=== PATIENT | male | born 1960 | race Caucasian/White ===

== ENCOUNTER 2021-09-07 18:01 | Inpatient (IN) | payer OTHER, SELFPAY ==
[2021-09-07 18:20] VITALS: BP 178/88; PULSE 54; TEMP 36.9
[2021-09-07 18:25] VITALS: BMI 18.3
[2021-09-07] MEDS: traZODone HCL 50 MG TABLET PO (21:49)
[2021-09-07] MEDS: Tamsulosin HCL 0.4 MG CAPSULE PO (21:49)
--- NOTE | 2021-09-07 21:56 | HO.PSYADMNOT ---
HPI Date of Service: 09/07/21 Chief Complaint: depressive d/o, stimulant related d/o, cocaine Sources of Information: patient interviewed, chart reviewed and crisis/core team assessment reviewed HPI Subjective Notes: Spears Warning and Conditional Voluntary Healthcare Proxy: No Guardianship: No Medical Problems Affecting Mental Status: No Narrative: Mason is a 61 y.o. who carries a dx of crack cocaine disorder, MDD recurrent. Male who presented [place] [facility] 09[place]07[place] due to SI. Pt reported that on 09/06/21 he jumped out of a second story apartment window yesterday and overdosed on 25 tabs of gabapentin 300 mg. He relapsed on crack cocaine x 1 week, using daily. Pt has not been caring for his DM, says he is insulin dependent. He does not have any current psych providers or PCP as he has been non-adherent with appointments. Precipitating factors include that pt has limited supports, as many people in his family have . He had 2 brothers who have and his sister was recently diagnosed with cancer.? Per ED notes on 09/06/21: EKG showed NSR, QTC 451. Pt was complaining of pleuritic pain, Chest CT showed no acute abnormality, ruled out pneumothorax. Pt also complained of hitting the back of his head during his fall, no acute intracranial hemorrhage or mass effect, no acute fracture of the cervical spine.? I value the patient this evening and upon interview he reports he is depressed and says ?I don't care about living no more, everyone is family is gone,? his sister was just diagnosed with cancer. Says ?Im tired of living period.?? patient is somewhat future-oriented says he wants to ?get it together,? ?i dont wanna go home messed up no more,? and that crack cocaine is too expensive. Says he has been smoking too much, ?I lost my fucking mind.? Pt has been sleeping outside or in hallways, as his ?dont play that drug shit,? cant use drugs at home. He relapsed last Monday and hasn?t been at home or work since then. However, he called his HR dept yesterday morning, now trying to get FMLA. Says his sleep has been improving due to being in the hospital, he was not sleeping prior to admission due to homelessness. Pt reports he has been struggling with depression and relapse for a while, says ?before this episode I was gone from home for 2 weeks.? Has been non-adherent with prozac. Says he wants a medication to help ?stop cravings.? Continues to endorse passive SI but denies plan or intent and says he feels safe. Past Psychiatric History: -Hx of crisis evals for SI, crack cocaine abuse. Medical Evaluation Reviewed: Yes PMFSH Narrative: -Cluster migraines, says verapamil and rizatriptan PRN helps. Family History: -Substance use and mental health. Social History: -Pt resides with his x 12 yrs who does not allow him to use crack cocaine at home and will kick him out if he does. No children. Pt has limited supports, as many people in his family have . He had 2 brothers who have and his sister was recently diagnosed with cancer. -Legal: Per chart, pt recently arrested on drug related charges and has an upcoming court date. Hx of shoplifting. -Works for [employer] in [place]. Substance History: -Pt has hx of student success coach -Crack cocaine: onset age 42, last using daily x 1 week, uses $600 worth. Diagnostics Vital Signs (24Hr): BMI result Body Mass Index 18.3 Labs Results: 09/08/21 08:22 09/08/21 08:22 Meds/Allergies Allergies Allergies Allergy/AdvReac Type Severity Reaction Status Date / Time Penicillins AdvReac Intermediate Hives Verified 09/07/21 18:29 ibuprofen AdvReac Nausea and Verified 09/07/21 18:29 Vomiting Mental Status Exam Mental Status Exam Narrative: A&O. In hospital attire, thin, scab on head. Poor eye contact, inattentive. No Tics or Tremors. No abnormal involuntary movements. Guarded, agitated, but ultimately able to engage. Non-pressured speech, spontaneous with regular rate and rhythm, normal volume and prosody. No prolonged speech latency or dysarthria. Mood is ?depressed,? affect is dysphoric. Endorses passive SI. Denies SIB/HI upon inquiry. Denies A/VH or delusional thought content. Thoughts are perseverative. No known cognitive or memory impairment. Insight/ Judgment limited but adequate. Assessment & Plan Assessment & Plan (1) Cocaine use disorder: Status: Acute Code(s): F14.10 - Cocaine abuse, uncomplicated (2) MDD (major depressive disorder), recurrent episode, moderate: Status: Acute Code(s): F33.1 - Major depressive disorder, recurrent, moderate Plan Mason is a 61 y.o. who carries a dx of crack cocaine disorder, MDD recurrent. Male who presented [place] [facility] [place] 09[place]07[place] due to SI. Pt reported that on 09/06/21 he jumped out of a second story apartment window yesterday and overdosed on 25 tabs of gabapentin 300 mg. He relapsed on crack cocaine x 1 week, using daily. Pt has not been caring for his DM, says he is insulin dependent. He does not have any current psych providers or PCP as he has been non-adherent with appointments. Precipitating factors include that pt has limited supports, as many people in his family have . He had 2 brothers who have and his sister was recently diagnosed with cancer.? Plan: Will re-start prozac 10 mg QAM for sx of depression, anxiety, may continue to titrate up as tolerated. Pt does not have OP services, may benefit from talking to recovery team. Patient educated on: medication risk/benefits and therapeutic strategies Reason for continued inpatient stay Substantial Risk for: harm to self, rapid decompensation and med/psych decompensation
--- NOTE | 2021-09-08 00:15 | PC.ADMIT ---
A pt aged 61 years was admitted to [facility] at 1815 as a CV following referral from [facility] and [facility] ED. Pt is has previous psychiatric admissions here and elsewhere as well as admissions for substances. Pt was assessed by [facility] at pt's home in ambulance following pt contacting 911 for help. Pt reported the day before on 09/05/21 he had taken 25 gabapentin capsules and threw himself out of a second floor window in an attempt to end his life. Pt reported he struck the back of his head on the ground. Mason stated to [facility] staff, I just want to , I'll do whatever it takes' I'm not good for nothing anymore, I'm nothing. Pt reported to this promotion writer that he had been using crack cocaine daily for the past several months. Pt reported to [facility] staff that he has not been monitoring his diabetes or taking his insulin for several days. Pt reports significant weight loss due to cocaine use. Pt reports poor sleep with frequent awakening and at times insomnia. Pt reports anxiety and depression rated at 8-10/10 and says sees VH of his mother at times. Pt reports current SI, but says can be safe on the unit; pt says can seek out staff for help if needed. TELLEZ was positive for cocaine only. Pt reports drinking Etoh less than monthly at 1-2 drinks. Pt has a supportive significant other with whom he has a long relationship and has stable housing. 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 Pt does not currently have a therapist or psychiatrist/ psych med prescriber. Pt stated he would like care for addiction for 30-60 days. Pt was calm and cooperative during assessment but was increasingly sleepy. Pt is a smoker of about 10 cigarettes daily and would like nicotine patch 14mg. Pt has poor dentition and would like to try the nicorette lozenge PRN. Medical issues include: diabetes, HTN and asthma. [id number] done, admission orders obtained and treatment plan initiated. Pt is resting in his room on 15 minute safety checks at this time. Pt still needs to complete the Safety Tool as he was falling asleep.
--- NOTE | 2021-09-08 08:00 | ECG_ITS ---
Test Reason : CK RHYTHM QT Blood Pressure : / mmHG Vent. Rate : 056 BPM Atrial Rate : 056 BPM P-R Int : 160 ms QRS Dur : 102 ms QT Int : 442 ms P-R-T Axes : 057 064 054 degrees QTc Int : 426 ms Sinus bradycardia with sinus arrhythmia Minimal voltage criteria for LVH, may be normal variant ( Sokolow-Britton ) Borderline ECG No previous ECGs available Referred By: Jorge Salinas Electronically Signed By:LAN KNOX MD
[2021-09-08] MEDS: VerapamiL HCL SR 240 MG TABLET.ER PO (08:23)
[2021-09-08] MEDS: Loratadine 10 MG TABLET PO (08:24)
[2021-09-08] MEDS: Atorvastatin Calcium 20 MG TABLET PO (08:24)
[2021-09-08] MEDS: FLUoxetine HCl Oral Solution 20 MG/5 ML SOLUTION 10 MG PO (08:24)
[2021-09-08] MEDS: metFORMIN HCl 500 MG TABLET PO (08:24)
[2021-09-08] MEDS: Aspirin 81 MG TAB.CHEW PO (08:24)
[2021-09-08] MEDS: Losartan Potassium 50 MG TABLET 100 MG PO (08:24)
[2021-09-08 08:27] VITALS: BP 157/97; PULSE 80; RESP 18; TEMP 36.6; O2SAT 100
[2021-09-08] MEDS: Nicotine 21 MG PATCH.TD24 TRANSDERMA (08:37)
[2021-09-08 08:56] LABS: MANUAL DIFF FLAG NO
[2021-09-08 09:03] LABS: Basophils Percent Auto 0.5 % (0-2); Eosinophils Absolute Auto 0.1 X10*3/uL (0.0-0.4); Eosinophils Percent Auto 2.8 % (0-4); Hemoglobin 11.9 g/dl (14.0-18.0); Imm Gran Abs Auto 0.01 X10*3/uL (0.00-0.03); Imm Gran Pct Auto 0.3 % (0.0-0.4); Lymphocytes Absolute Auto 1.2 X10*3/uL (1.2-4.9); Lymphocytes Percent Auto 30.4 % (20-40); Mean Corpuscular HGB Conc 32.2 g/dl (31.0-36.0); Mean Corpuscular Hemoglobin 26.2 pg (27.0-33.0); Mean Corpuscular Volume 81.3 fL (80.0-98.0); Mean Platelet Volume 10.1 fL (9.4-12.4); Monocytes Absolute Auto 0.3 X10*3/uL (0.1-1.2); Monocytes Percent Auto 8.1 % (2-11); Neutrophils Absolute Auto 2.3 x10*3/uL (2.0-8.3); Neutrophils Percent Auto 57.9 % (45-73); Platelet Count 247 X10*3/uL (160-400); Red Blood Count 4.55 X10*6/uL (4.60-5.80); Red Cell Distribution Width 14.4 % (11.0-16.0)
[2021-09-08 09:34] LABS: Alanine Aminotransferase 14 U/L (0-40); Albumin Level 4.1 g/dL (3.5-5.0); Alkaline Phosphatase 51 U/L (39-117); Anion Gap 12 (12-20); Aspartate Amino Transferase 16 U/L (5-37); Bilirubin Total 0.3 mg/dL (0.0-1.0); Blood Urea Nitrogen 16 mg/dL (9-16); Carbon Dioxide 27 mmol/L (22-29); Chloride 105 mmol/L (96-108); Cholesterol 135 mg/dL; Creatinine Clr Calc Pharmacy 72.3; Estimated Glomerular Filt Rate > 60; Glucose Fasting 109 mg/dL (60-99); HDL Cholesterol 46 mg/dL; LDL Cholesterol Calculated 78 mg/dl; Potassium 4.6 mmol/L (3.3-5.1); Sodium 139 mmol/L (135-145); Total Protein 6.6 g/dL (6.5-8.0); Triglycerides 59 mg/dL
[2021-09-08 09:43] LABS: Estimated Average Glucose 117 mg/dL; Hemoglobin A1c % 5.7 %
[2021-09-08 12:01] LABS: Glucose, Whole Blood 102 mg/dL (60-115)
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
--- NOTE | 2021-09-08 13:21 | HO.PSYCHPN ---
Subjective Subjective Date of Service: 09/08/21 Reason For Visit: depressive d/o, stimulant related d/o, cocaine Interim History: Reviewed admitting H and P; reviewed ED notes. Head and neck CT done 09/07/2019 to no acute disease; no intracranial processes no fracture of cervical spine [facility] Chopper reviewed history and patient said that he has been depressed for 6 or 7 months even while sober. He said the last 2 months he started to relapse and his depression is only gotten worse since then, significantly increasing the past 3 weeks as has his crack cocaine abuse. Patient said Prozac does not seem to help much. The reason hE jumped out the window was because his depression and frustration with himself and life reached a point where he got impulsive and just said fuck it and went out the window. Patient is currently ambivalent about being alive. On the 1 hand he said he wishes he had ; on the other hand he loves his and is with deep remorse and having caused her emotional pain and wants to continue to be alive and in relationship with her. Patient said that some of the precipitating factors are the fact that his brother who is his best friend a year and half ago; now his sister has cancer; however he complains of chronic depression anyway. He said that most of his family has not lived to 60, his mother at 41 from alcohol-related illness. Patient denies history of manic type episodes or behaviors outside of crack cocaine binges; denies AH. Denies history of trauma. Patient agrees to try Wellbutrin for depression. Past trial includes Remeron which made him dizzy Mental Status Exam Mental Status Exam Narrative: Pt is alert and oriented; behavior is cooperative and calm; patient is distraught; blanket wrapped around him; adequate hygiene; mood is described as depressed and affect congruent, downcast, tearful; minimal eye contact; Speech is softer volume; normal rate and prosody and not pressured; psychomotor retardation present; thought process is organized and goal directed; Thought content is on being ; otherwise pertinent to relevant topics and without any delusional content, paranoid ideations or grandiosity;continues to have SI wishing he had , but will not hurt self on unit; no HI. There is no evidence of perceptual disturbance; denies AH. Patients insight and judgment are impaired. Diagnostics Vital Signs (24Hr): Vital Signs - 24 hr 09/07/21 18:20 09/08/21 08:27 Temperature 98.5 F 97.8 F Pulse Rate 54 80 Respiratory Rate 18 Blood Pressure 178/88 H 157/97 H Pulse Oximetry 100 Oxygen Delivery Method Room Air BMI result Body Mass Index 18.3 Labs Results: 09/08/21 08:22 09/08/21 08:22 Labs: Laboratory Results - last 48 hr 09/08/21 09/08/21 09/08/21 08:22 08:22 08:22 WBC 4.0 L RBC 4.55 L Hgb 11.9 L Hct 37.0 L MCV 81.3 MCH 26.2 L MCHC 32.2 RDW 14.4 Plt Count 247 MPV 10.1 Immature Gran % (Auto) 0.3 Neut % (Auto) 57.9 Lymph % (Auto) 30.4 [facility] % (Auto) 8.1 Eos % (Auto) 2.8 Baso % (Auto) 0.5 Lymph # (Auto) 1.2 [facility] # (Auto) 0.3 Eos # (Auto) 0.1 Baso # (Auto) 0.0 Abs Immat Gran (auto) 0.01 Absolute Neuts (auto) 2.3 Absolute Nucleated RBC 0.000 Nucleated RBC % (auto) 0.0 Sodium 139 Potassium 4.6 Chloride 105 Carbon Dioxide 27 Anion Gap 12 BUN 16 Creatinine 0.94 Estim Creat Clear Calc 72.3 Estimated GFR > 60 POC Glucose Fasting Glucose 109 H Estimat Average Glucose 117 Hemoglobin A1c % 5.7 Calcium 9.0 Total Bilirubin 0.3 AST 16 ALT 14 Alkaline Phosphatase 51 Total Protein 6.6 Albumin 4.1 Triglycerides 59 Cholesterol 135 LDL Cholesterol, Calc 78 HDL Cholesterol 46 09/08/21 11:57 WBC RBC Hgb Hct MCV MCH MCHC RDW Plt Count MPV Immature Gran % (Auto) Neut % (Auto) Lymph % (Auto) [facility] % (Auto) Eos % (Auto) Baso % (Auto) Lymph # (Auto) [facility] # (Auto) Eos # (Auto) Baso # (Auto) Abs Immat Gran (auto) Absolute Neuts (auto) Absolute Nucleated RBC Nucleated RBC % (auto) Sodium Potassium Chloride Carbon Dioxide Anion Gap BUN Creatinine Estim Creat Clear Calc Estimated GFR POC Glucose 102 Fasting Glucose Estimat Average Glucose Hemoglobin A1c % Calcium Total Bilirubin AST ALT Alkaline Phosphatase Total Protein Albumin Triglycerides Cholesterol LDL Cholesterol, Calc HDL Cholesterol Medications Medications Current Medications Acetaminophen (Acetaminophen 325 Mg Tablet) 650 mg PO Q6H PRN PRN Reason: Headache/Pain Mild Scale (1-3) Al Hydroxide/Mg Hydroxide (Magnesium Hydrox/Alum Hydrox 30 Ml Oral.Susp) 30 ml PO Q6H PRN PRN Reason: Heartburn/Nausea Aspirin (Aspirin 81 Mg Tab.Chew) 81 mg PO DAILY [facility] Last Admin: 09/08/21 08:24 Dose: 81 mg Atorvastatin Calcium (Atorvastatin Calcium 20 Mg Tablet) 20 mg PO DAILY [facility] Last Admin: 09/08/21 08:24 Dose: 20 mg Bupropion HCl (Bupropion Hcl Xl 150 Mg Tab.Er.24h) 150 mg PO DAILY [facility] Hydroxyzine HCl (Hydroxyzine Hcl 25 Mg Tablet) 25 mg PO BEDTIME PRN PRN Reason: Anxiety Insulin Human Lispro (Insulin Lispro 100 Unit/Ml 3 Ml Vial) 0 unit SUBCUT QIDACHS [facility]; Protocol Last Admin: 09/08/21 12:15 Dose: Not Given Loratadine (Loratadine 10 Mg Tablet) 10 mg PO DAILY [facility] Last Admin: 09/08/21 08:24 Dose: 10 mg Losartan Potassium (Losartan Potassium 50 Mg Tablet) 100 mg PO DAILY [facility]; Protocol Last Admin: 09/08/21 08:24 Dose: 100 mg Magnesium Hydroxide (Milk Of Magnesia 30 Ml Oral.Susp) 30 ml PO DAILY PRN PRN Reason: Constipation Metformin HCl (Metformin Hcl 500 Mg Tablet) 500 mg PO DAILY [facility] Last Admin: 09/08/21 08:24 Dose: 500 mg Nicotine (Nicotine 21 Mg Patch.Td24) 21 mg TRANSDERMA DAILY [facility] Last Admin: 09/08/21 08:37 Dose: 21 mg Nicotine Polacrilex (Nicotine Polacrilex Lozenge 2 Mg Lozenge) 2 mg BUCCAL Q2H PRN PRN Reason: Nicotine Cravings Tamsulosin HCl (Tamsulosin Hcl 0.4 Mg Capsule) 0.4 mg PO BEDTIME [facility] Last Admin: 09/07/21 21:49 Dose: 0.4 mg Trazodone HCl (Trazodone Hcl 50 Mg Tablet) 50 mg PO BEDTIME PRN PRN Reason: Insomnia Last Admin: 09/07/21 21:49 Dose: 50 mg Verapamil HCl (Verapamil Hcl Sr 240 Mg Tablet.Er) 240 mg PO DAILY [facility]; Protocol Last Admin: 09/08/21 08:23 Dose: 240 mg Allergies Allergies Allergy/AdvReac Type Severity Reaction Status Date / Time Penicillins AdvReac Intermediate Hives Verified 09/07/21 18:29 ibuprofen AdvReac Nausea and Verified 09/07/21 18:29 Vomiting Assessment & Plan Assessment & Plan (1) MDD (major depressive disorder), recurrent episode, moderate: Status: Acute Code(s): F33.1 - Major depressive disorder, recurrent, moderate (2) Cocaine use disorder: Status: Acute Code(s): F14.10 - Cocaine abuse, uncomplicated Plan Mason is a 61 y.o. who carries a dx of crack cocaine disorder, MDD recurrent. Male who presented to [facility] ED on 09/07/21 due to SI. Pt reported that on 09/06/21 he jumped out of a second story apartment window yesterday and overdosed on 25 tabs of gabapentin 300 mg. He relapsed on crack cocaine 2 months ago, but heavily increased about 3 weeks ago, using daily. Pt has not been caring for his DM, says he is insulin dependent. He does not have any current psych providers or PCP as he has been non-adherent with appointments. Precipitating factors include that pt has limited supports, as many people in his family have including his brother who was his best friend; no one in his family has lived past 60 and his sister was recently diagnosed with cancer.? Patient seems to have chronic poorly treated depression which is clearly worsened by substance abuse. Patient is also dealing with several significant losses in his life. However he is fortunate to have a loving supportive which is 1 of his large is protective factors currently his motivation for pursuing recovery. Patient is currently employed -patient agrees to start Wellbutrin; will discontinue Prozac as patient says not helpful -patient wants substance abuse program Plan: CV Q 15 minute checks Discontinue Prozac START Wellbutrin XL 150 mg daily for depression Continue Aspirin 81 mg PO DAILY [facility] Continue Atorvastatin Calcium 20 mg PO DAILY [facility] added Hydroxyzine HCl25 mg PO BEDTIME PRN Continue Insulin Human Lispro (Insulin Lispro 100 Unit/Ml 3 Ml Vial) 0 unit SUBCUT QIDACHS [facility]; Protocol Continue Loratadine 10 mg PO DAILY [facility] Continue Losartan [id number] mg PO DAILY [facility]; Protocol Continue Metformin HCl 500 mg PO DAILY [facility] Continue Tamsulosin HCl 0.4 mg PO BEDTIME [facility] added Trazodone HCl 50 mg PO BEDTIME PRN Continue Verapamil HCl (Verapamil Hcl Sr 240 Mg Tablet.Er) I spent minutes with the patient and/or on the patient floor today, greater than?50% of which was spent counseling/coordinating care. Patient educated on: diagnosis, medication risk/benefits, substance abuse and therapeutic strategies Informed Consent: understands Reason for contiued inpatient stay Substantial Risk for: harm to self
[2021-09-08] MEDS: Multivitamin TABLET 1 TAB PO (13:49)
[2021-09-08] MEDS: Folic Acid 1 MG TABLET PO (13:49)
[2021-09-08] MEDS: Thiamine HCL 100 MG TABLET PO (13:49)
[2021-09-08] MEDS: Acetaminophen 325 MG TABLET 650 MG PO ×2 (16:30→22:33)
[2021-09-08 16:53] LABS: Glucose, Whole Blood 75 mg/dL (60-115)
[2021-09-08 17:25] VITALS: BP 167/99; PULSE 83; RESP 16; TEMP 36.3; O2SAT 99
[2021-09-08 19:37] LABS: Glucose, Whole Blood 98 mg/dL (60-115)
[2021-09-08] MEDS: Tamsulosin HCL 0.4 MG CAPSULE PO (19:47)
[2021-09-08] MEDS: SUMAtriptan succinate 25 MG TABLET PO (22:56)
[2021-09-09 06:26] LABS: Glucose, Whole Blood 100 mg/dL (60-115)
[2021-09-09 06:43] VITALS: BP 152/80; PULSE 79; RESP 17; TEMP 36.2; O2SAT 100
[2021-09-09] MEDS: Thiamine HCL 100 MG TABLET PO (07:56)
[2021-09-09] MEDS: buPROPion HCl XL 150 MG TAB.ER.24H PO (07:56)
[2021-09-09] MEDS: VerapamiL HCL SR 240 MG TABLET.ER PO (07:56)
[2021-09-09] MEDS: Atorvastatin Calcium 20 MG TABLET PO (07:56)
[2021-09-09] MEDS: Losartan Potassium 50 MG TABLET 100 MG PO (07:56)
[2021-09-09] MEDS: metFORMIN HCl 500 MG TABLET PO (07:56)
[2021-09-09] MEDS: Multivitamin TABLET 1 TAB PO (07:56)
[2021-09-09] MEDS: Folic Acid 1 MG TABLET PO (07:56)
[2021-09-09] MEDS: Nicotine 21 MG PATCH.TD24 TRANSDERMA (07:57)
[2021-09-09] MEDS: Aspirin 81 MG TAB.CHEW PO (07:59)
[2021-09-09] MEDS: Loratadine 10 MG TABLET PO (08:01)
[2021-09-09 08:02] VITALS: BP 137/94; PULSE 64
[2021-09-09 08:47] VITALS: BMI 20.7
[2021-09-09 11:27] LABS: Glucose, Whole Blood 90 mg/dL (60-115)
[2021-09-09 15:54] LABS: Glucose, Whole Blood 90 mg/dL (60-115)
--- NOTE | 2021-09-09 17:29 | HO.PSYCHPN ---
Subjective Subjective Date of Service: 09/09/21 Reason For Visit: depressive d/o, stimulant related d/o, cocaine Interim History: Clarification, patient is NOT insulin-dependent. He reports that he has never been prescribed insulin and has never taken it. He said that he might have missed spoken on admission and what he meant to say was that he had not been taking his metformin for some time during relapse. Patient reports that his mood is a little better today and he is tolerating the medication. He spoke to his which was a good conversation. He denies being suicidal and has some renewed Hope for overcoming his addiction and depression. Patient says he needs to go to a program very much in order to work on his sobriety, very sure that he will relapse if discharged home. Patient would also like to go to a CSS that is out of [facility] since he says he knows most of the attic sin dealers in this area which she finds triggering. Otherwise patient says that he is eating and sleeping well. Mental Status Exam Mental Status Exam Narrative: Pt is alert and oriented; behavior is cooperative and calm; in hospital attire; adequate hygiene; mood is described as depressed...but a little better and affect congruent, not as downcast; improved eye contact; Speech is normal volume; normal rate and prosody and not pressured; some psychomotor retardation present; thought process is organized and goal directed; Thought content is on trying to be hopeful; otherwise pertinent to relevant topics and without any delusional content, paranoid ideations or grandiosity; no SI; no HI; There is no evidence of perceptual disturbance; denies AH. Patients insight and judgment are impaired but improved. Diagnostics Vital Signs (24Hr): Vital Signs - 24 hr 09/09/21 06:43 09/09/21 08:02 Temperature 97.2 F Pulse Rate 79 64 Respiratory Rate 17 Blood Pressure 152/80 H 137/94 H Pulse Oximetry 100 Oxygen Delivery Method Room Air BMI result Body Mass Index 20.7 Labs Results: 09/08/21 08:22 09/08/21 08:22 Labs: Laboratory Results - last 48 hr 09/08/21 09/08/21 09/08/21 08:22 08:22 08:22 WBC 4.0 L RBC 4.55 L Hgb 11.9 L Hct 37.0 L MCV 81.3 MCH 26.2 L MCHC 32.2 RDW 14.4 Plt Count 247 MPV 10.1 Immature Gran % (Auto) 0.3 Neut % (Auto) 57.9 Lymph % (Auto) 30.4 [facility] % (Auto) 8.1 Eos % (Auto) 2.8 Baso % (Auto) 0.5 Lymph # (Auto) 1.2 [facility] # (Auto) 0.3 Eos # (Auto) 0.1 Baso # (Auto) 0.0 Abs Immat Gran (auto) 0.01 Absolute Neuts (auto) 2.3 Absolute Nucleated RBC 0.000 Nucleated RBC % (auto) 0.0 Sodium 139 Potassium 4.6 Chloride 105 Carbon Dioxide 27 Anion Gap 12 BUN 16 Creatinine 0.94 Estim Creat Clear Calc 72.3 Estimated GFR > 60 POC Glucose Fasting Glucose 109 H Estimat Average Glucose 117 Hemoglobin A1c % 5.7 Calcium 9.0 Total Bilirubin 0.3 AST 16 ALT 14 Alkaline Phosphatase 51 Total Protein 6.6 Albumin 4.1 Triglycerides 59 Cholesterol 135 LDL Cholesterol, Calc 78 HDL Cholesterol 46 09/08/21 09/08/21 09/08/21 11:57 16:48 19:31 WBC RBC Hgb Hct MCV MCH MCHC RDW Plt Count MPV Immature Gran % (Auto) Neut % (Auto) Lymph % (Auto) [facility] % (Auto) Eos % (Auto) Baso % (Auto) Lymph # (Auto) [facility] # (Auto) Eos # (Auto) Baso # (Auto) Abs Immat Gran (auto) Absolute Neuts (auto) Absolute Nucleated RBC Nucleated RBC % (auto) Sodium Potassium Chloride Carbon Dioxide Anion Gap BUN Creatinine Estim Creat Clear Calc Estimated GFR POC Glucose 102 75 98 Fasting Glucose Estimat Average Glucose Hemoglobin A1c % Calcium Total Bilirubin AST ALT Alkaline Phosphatase Total Protein Albumin Triglycerides Cholesterol LDL Cholesterol, Calc HDL Cholesterol 09/09/21 09/09/21 09/09/21 06:23 11:23 15:49 WBC RBC Hgb Hct MCV MCH MCHC RDW Plt Count MPV Immature Gran % (Auto) Neut % (Auto) Lymph % (Auto) [facility] % (Auto) Eos % (Auto) Baso % (Auto) Lymph # (Auto) [facility] # (Auto) Eos # (Auto) Baso # (Auto) Abs Immat Gran (auto) Absolute Neuts (auto) Absolute Nucleated RBC Nucleated RBC % (auto) Sodium Potassium Chloride Carbon Dioxide Anion Gap BUN Creatinine Estim Creat Clear Calc Estimated GFR POC Glucose 100 90 90 Fasting Glucose Estimat Average Glucose Hemoglobin A1c % Calcium Total Bilirubin AST ALT Alkaline Phosphatase Total Protein Albumin Triglycerides Cholesterol LDL Cholesterol, Calc HDL Cholesterol Medications Medications Current Medications Acetaminophen (Acetaminophen 325 Mg Tablet) 650 mg PO Q6H PRN PRN Reason: Headache/Pain Mild Scale (1-3) Last Admin: 09/08/21 22:33 Dose: 650 mg Al Hydroxide/Mg Hydroxide (Magnesium Hydrox/Alum Hydrox 30 Ml Oral.Susp) 30 ml PO Q6H PRN PRN Reason: Heartburn/Nausea Aspirin (Aspirin 81 Mg Tab.Chew) 81 mg PO DAILY [facility] Last Admin: 09/09/21 07:59 Dose: 81 mg Atorvastatin Calcium (Atorvastatin Calcium 20 Mg Tablet) 20 mg PO DAILY [facility] Last Admin: 09/09/21 07:56 Dose: 20 mg Bupropion HCl (Bupropion Hcl Xl 150 Mg Tab.Er.24h) 150 mg PO DAILY [facility] Last Admin: 09/09/21 07:56 Dose: 150 mg Folic Acid (Folic Acid 1 Mg Tablet) 1 mg PO DAILY [facility] Last Admin: 09/09/21 07:56 Dose: 1 mg Hydroxyzine HCl (Hydroxyzine Hcl 25 Mg Tablet) 25 mg PO BEDTIME PRN PRN Reason: Anxiety Insulin Human Lispro (Insulin Lispro 100 Unit/Ml 3 Ml Vial) 0 unit SUBCUT QIDACHS [facility]; Protocol Last Admin: 09/09/21 16:53 Dose: Not Given Loratadine (Loratadine 10 Mg Tablet) 10 mg PO DAILY [facility] Last Admin: 09/09/21 08:01 Dose: 10 mg Losartan Potassium (Losartan Potassium 50 Mg Tablet) 100 mg PO DAILY [facility]; Protocol Last Admin: 09/09/21 07:56 Dose: 100 mg Magnesium Hydroxide (Milk Of Magnesia 30 Ml Oral.Susp) 30 ml PO DAILY PRN PRN Reason: Constipation Metformin HCl (Metformin Hcl 500 Mg Tablet) 500 mg PO DAILY [facility] Last Admin: 09/09/21 07:56 Dose: 500 mg Multivitamins/Vitamin C (Multivitamin Tablet) 1 tab PO DAILY [facility] Last Admin: 09/09/21 07:56 Dose: 1 tab Nicotine (Nicotine 21 Mg Patch.Td24) 21 mg TRANSDERMA DAILY [facility] Last Admin: 09/09/21 07:57 Dose: 21 mg Nicotine Polacrilex (Nicotine Polacrilex Lozenge 2 Mg Lozenge) 2 mg BUCCAL Q2H PRN PRN Reason: Nicotine Cravings Sumatriptan Succinate (Sumatriptan Succinate 25 Mg Tablet) 25 mg PO DAILY PRN PRN Reason: cluster headache Last Admin: 09/08/21 22:56 Dose: 25 mg Tamsulosin HCl (Tamsulosin Hcl 0.4 Mg Capsule) 0.4 mg PO BEDTIME [facility] Last Admin: 09/08/21 19:47 Dose: 0.4 mg Thiamine HCl (Thiamine Hcl 100 Mg Tablet) 100 mg PO DAILY [facility] Last Admin: 09/09/21 07:56 Dose: 100 mg Trazodone HCl (Trazodone Hcl 50 Mg Tablet) 50 mg PO BEDTIME PRN PRN Reason: Insomnia Last Admin: 09/07/21 21:49 Dose: 50 mg Verapamil HCl (Verapamil Hcl Sr 240 Mg Tablet.Er) 240 mg PO DAILY [facility]; Protocol Last Admin: 09/09/21 07:56 Dose: 240 mg Allergies Allergies Allergy/AdvReac Type Severity Reaction Status Date / Time Penicillins AdvReac Intermediate Hives Verified 09/07/21 18:29 ibuprofen AdvReac Nausea and Verified 09/07/21 18:29 Vomiting Assessment & Plan Assessment & Plan (1) MDD (major depressive disorder), recurrent episode, moderate: Status: Acute Code(s): F33.1 - Major depressive disorder, recurrent, moderate (2) Cocaine use disorder: Status: Acute Code(s): F14.10 - Cocaine abuse, uncomplicated Plan Mason is a 61 y.o. who carries a dx of crack cocaine disorder, MDD recurrent. Male who presented to [facility] ED on 09/07/21 due to SI. Pt reported that on 09/06/21 he jumped out of a second story apartment window yesterday and overdosed on 25 tabs of gabapentin 300 mg. He relapsed on crack cocaine 2 months ago, but heavily increased about 3 weeks ago, using daily. Pt has not been caring for his DM, says he is insulin dependent (later recounts this and says he has never been on insulin). He does not have any current psych providers or PCP as he has been non-adherent with appointments. Precipitating factors include that pt has limited supports, as many people in his family have including his brother who was his best friend; no one in his family has lived past 60 and his sister was recently diagnosed with cancer.? Patient seems to have chronic poorly treated depression which is clearly worsened by substance abuse. Patient is also dealing with several significant losses in his life. However he is fortunate to have a loving supportive which is 1 of his large is protective factors currently his motivation for pursuing recovery. Patient is currently employed -patient agrees to start Wellbutrin; will discontinue Prozac as patient says not helpful -patient wants substance abuse program 09/09 patient remains depressed but says that his mood is a little better and he denies any SI. He is a little more hopeful having talked to his and wants to keep trying to be hopeful, pursuing sobriety and addressing his depression. Still wants [facility] program, hopefully not in [place] or [place] since he knows many of the drug-seeking community in this area. Although patient's mood is better, it is only just beginning to get better and is at a fragile state; patient is not appropriate for discharge at this time has he is highly vulnerable to relapse and mood decompensation Plan: CV Q 15 minute checks Discontinue Prozac Continue (started on admission) Wellbutrin XL 150 mg daily for depression; will assess if need to increase Continue Aspirin 81 mg PO DAILY [facility] Continue Atorvastatin Calcium 20 mg PO DAILY [facility] added Hydroxyzine HCl25 mg PO BEDTIME PRN Continue Loratadine 10 mg PO DAILY [facility] Continue Losartan [id number] mg PO DAILY [facility]; Protocol Continue Metformin HCl 500 mg PO DAILY [facility] Continue Tamsulosin HCl 0.4 mg PO BEDTIME [facility] added Trazodone HCl 50 mg PO BEDTIME PRN Continue Verapamil HCl (Verapamil Hcl Sr 240 Mg Tablet.Er) DISCONTINUE Insulin Human Lispro: Patient reports that he has never been on insulin and his life; pharmacy prescriptions reviewed and functional tester typewriters can not find evidence of insulin having been prescribed. Currently patient's blood sugars are fine; have probably improved since he lost so much weight due to depression and drug use I spent minutes with the patient and/or on the patient floor today, greater than?50% of which was spent counseling/coordinating care. Patient educated on: diagnosis, medication risk/benefits, substance abuse and medical condition Informed Consent: understands Reason for contiued inpatient stay Substantial Risk for: rapid decompensation
[2021-09-09 18:00] VITALS: BP 131/81; PULSE 81; RESP 18; TEMP 36.7; O2SAT 98
[2021-09-09] MEDS: Tamsulosin HCL 0.4 MG CAPSULE PO (19:21)
[2021-09-09] MEDS: SUMAtriptan succinate 25 MG TABLET PO (19:21)
[2021-09-10 08:02] LABS: Glucose, Whole Blood 100 mg/dL (60-115)
[2021-09-10] MEDS: Loratadine 10 MG TABLET PO (09:17)
[2021-09-10] MEDS: VerapamiL HCL SR 240 MG TABLET.ER PO (09:17)
[2021-09-10] MEDS: Thiamine HCL 100 MG TABLET PO (09:17)
[2021-09-10] MEDS: Multivitamin TABLET 1 TAB PO (09:17)
[2021-09-10] MEDS: metFORMIN HCl 500 MG TABLET PO (09:17)
[2021-09-10] MEDS: Aspirin 81 MG TAB.CHEW PO (09:18)
[2021-09-10] MEDS: Atorvastatin Calcium 20 MG TABLET PO (09:18)
[2021-09-10] MEDS: Nicotine 21 MG PATCH.TD24 TRANSDERMA (09:18)
[2021-09-10] MEDS: buPROPion HCl XL 150 MG TAB.ER.24H PO (09:18)
[2021-09-10] MEDS: Losartan Potassium 50 MG TABLET 100 MG PO (09:18)
[2021-09-10] MEDS: Folic Acid 1 MG TABLET PO (09:18)
[2021-09-10 09:30] VITALS: BP 133/84; PULSE 80; RESP 18; TEMP 36.4; O2SAT 97
[2021-09-10] MEDS: SUMAtriptan succinate 25 MG TABLET PO ×2 (11:55→18:23)
--- NOTE | 2021-09-10 17:36 | HO.PSYCHPN ---
Subjective Subjective Date of Service: 09/10/21 Reason For Visit: depressive d/o, stimulant related d/o, cocaine Subjective Notes: Spears Warning and Conditional Voluntary Healthcare Proxy: No Guardianship: No Medical Problems Affecting Mental Status: No Interim History: Patient seen and discussed with team. Patient evaluated today and upon interview he reports his mood is alright. He is working with SW on his clipkit paperwork and getting a bed at a residential substance use treatment center, will call [facility]. Pt reports he is still a little bit depressed, but not much. Says I feel like I let everybody down. Still has cravings for cocaine. Sleep is improving, he is trying to gain weight, drinking ensure. In the milieu, patient is safe, visible. Denies SI/SIB/HI upon inquiry. Denies irritability or assaultive ideation. Says he feels safe.? Medication Compliance: Yes Side effects from medications: No Attending Groups: No Review of Systems Acute medical concerns: No Medical Review of Systems: unchanged Mental Status Exam Mental Status Exam Narrative: Pt is alert and oriented; behavior is cooperative and calm; in hospital attire; adequate hygiene; mood is described as a little depressed and affect appropriate; Speech is normal volume; normal rate and prosody and not pressured; some psychomotor retardation present; thought process is organized and goal directed; Thought content is on treatment for cocaine addiction; no delusional content, paranoid ideations or grandiosity; no SI; no HI; There is no evidence of perceptual disturbance; denies AH.? Patients insight and judgment are impaired but improved. Diagnostics Vital Signs (24Hr): Vital Signs - 24 hr 09/09/21 18:00 09/10/21 09:30 Temperature 98.1 F 97.6 F Pulse Rate 81 80 Respiratory Rate 18 18 Blood Pressure 131/81 133/84 Pulse Oximetry 98 97 Oxygen Delivery Method Room Air Room Air BMI result Body Mass Index 20.7 Labs Results: 09/08/21 08:22 09/08/21 08:22 Labs: Laboratory Results - last 48 hr 09/08/21 09/09/21 09/09/21 19:31 06:23 11:23 POC Glucose 98 100 90 09/09/21 09/10/21 15:49 07:57 POC Glucose 90 100 Medications Medications Current Medications Acetaminophen (Acetaminophen 325 Mg Tablet) 650 mg PO Q6H PRN PRN Reason: Headache/Pain Mild Scale (1-3) Last Admin: 09/08/21 22:33 Dose: 650 mg Al Hydroxide/Mg Hydroxide (Magnesium Hydrox/Alum Hydrox 30 Ml Oral.Susp) 30 ml PO Q6H PRN PRN Reason: Heartburn/Nausea Aspirin (Aspirin 81 Mg Tab.Chew) 81 mg PO DAILY [facility] Last Admin: 09/10/21 09:18 Dose: 81 mg Atorvastatin Calcium (Atorvastatin Calcium 20 Mg Tablet) 20 mg PO DAILY [facility] Last Admin: 09/10/21 09:18 Dose: 20 mg Bupropion HCl (Bupropion Hcl Xl 150 Mg Tab.Er.24h) 150 mg PO DAILY [facility] Last Admin: 09/10/21 09:18 Dose: 150 mg Folic Acid (Folic Acid 1 Mg Tablet) 1 mg PO DAILY [facility] Last Admin: 09/10/21 09:18 Dose: 1 mg Hydroxyzine HCl (Hydroxyzine Hcl 25 Mg Tablet) 25 mg PO BEDTIME PRN PRN Reason: Anxiety Loratadine (Loratadine 10 Mg Tablet) 10 mg PO DAILY [facility] Last Admin: 09/10/21 09:17 Dose: 10 mg Losartan Potassium (Losartan Potassium 50 Mg Tablet) 100 mg PO DAILY [facility]; Protocol Last Admin: 09/10/21 09:18 Dose: 100 mg Magnesium Hydroxide (Milk Of Magnesia 30 Ml Oral.Susp) 30 ml PO DAILY PRN PRN Reason: Constipation Metformin HCl (Metformin Hcl 500 Mg Tablet) 500 mg PO DAILY [facility] Last Admin: 09/10/21 09:17 Dose: 500 mg Multivitamins/Vitamin C (Multivitamin Tablet) 1 tab PO DAILY [facility] Last Admin: 09/10/21 09:17 Dose: 1 tab Nicotine (Nicotine 21 Mg Patch.Td24) 21 mg TRANSDERMA DAILY [facility] Last Admin: 09/10/21 09:18 Dose: 21 mg Nicotine Polacrilex (Nicotine Polacrilex Lozenge 2 Mg Lozenge) 2 mg BUCCAL Q2H PRN PRN Reason: Nicotine Cravings Sumatriptan Succinate (Sumatriptan Succinate 25 Mg Tablet) 25 mg PO DAILY PRN PRN Reason: cluster headache Last Admin: 09/10/21 11:55 Dose: 25 mg Tamsulosin HCl (Tamsulosin Hcl 0.4 Mg Capsule) 0.4 mg PO BEDTIME [facility] Last Admin: 09/09/21 19:21 Dose: 0.4 mg Thiamine HCl (Thiamine Hcl 100 Mg Tablet) 100 mg PO DAILY [facility] Last Admin: 09/10/21 09:17 Dose: 100 mg Trazodone HCl (Trazodone Hcl 50 Mg Tablet) 50 mg PO BEDTIME PRN PRN Reason: Insomnia Last Admin: 09/07/21 21:49 Dose: 50 mg Verapamil HCl (Verapamil Hcl Sr 240 Mg Tablet.Er) 240 mg PO DAILY [facility]; Protocol Last Admin: 09/10/21 09:17 Dose: 240 mg Allergies Allergies Allergy/AdvReac Type Severity Reaction Status Date / Time Penicillins AdvReac Intermediate Hives Verified 09/07/21 18:29 ibuprofen AdvReac Nausea and Verified 09/07/21 18:29 Vomiting Assessment & Plan Assessment & Plan (1) MDD (major depressive disorder), recurrent episode, moderate: Status: Acute Code(s): F33.1 - Major depressive disorder, recurrent, moderate (2) Cocaine use disorder: Status: Acute Code(s): F14.10 - Cocaine abuse, uncomplicated Plan Mason is a 61 y.o. who carries a dx of crack cocaine disorder, MDD recurrent. Male who presented to [facility] on 09/07/21 due to SI. Pt reported that on 09/06/21 he jumped out of a second story apartment window yesterday and overdosed on 25 tabs of gabapentin 300 mg. He relapsed on crack cocaine 2 months ago, but heavily increased about 3 weeks ago, using daily. Pt has not been caring for his DM, says he is insulin dependent (later recounts this and says he has never been on insulin). He does not have any current psych providers or PCP as he has been non-adherent with appointments. Precipitating factors include that pt has limited supports, as many people in his family have including his brother who was his best friend; no one in his family has lived past 60 and his sister was recently diagnosed with cancer.? Patient seems to have chronic poorly treated depression which is clearly worsened by substance abuse. Patient is also dealing with several significant losses in his life. However he is fortunate to have a loving supportive which is 1 of his large is protective factors currently his motivation for pursuing recovery. Patient is currently employed -patient agrees to start Wellbutrin; will discontinue Prozac as patient says not helpful -patient wants substance abuse program 6/23 patient remains depressed but says that his mood is a little better and he denies any SI. He is a little more hopeful having talked to his and wants to keep trying to be hopeful, pursuing sobriety and addressing his depression. Still wants [facility] program, hopefully not in [place] or [place] since he knows many of the drug-seeking community in this area. Although patient's mood is better, it is only just beginning to get better and is at a fragile state; patient is not appropriate for discharge at this time has he is highly vulnerable to relapse and mood decompensation Plan: CV Q 15 minute checks Discontinue Prozac Continue (started on admission) Wellbutrin XL 150 mg daily for depression; will assess if need to increase Continue Aspirin 81 mg PO DAILY [facility] Continue Atorvastatin Calcium 20 mg PO DAILY [facility] added Hydroxyzine HCl25 mg PO BEDTIME PRN Continue Loratadine 10 mg PO DAILY [facility] Continue Losartan [id number] mg PO DAILY [facility]; Protocol Continue Metformin HCl 500 mg PO DAILY [facility] Continue Tamsulosin HCl 0.4 mg PO BEDTIME [facility] added Trazodone HCl 50 mg PO BEDTIME PRN Continue Verapamil HCl (Verapamil Hcl Sr 240 Mg Tablet.Er) DISCONTINUE Insulin Human Lispro: Patient reports that he has never been on insulin and his life; pharmacy prescriptions reviewed and newspaper writer can not find evidence of insulin having been prescribed. Currently patient's blood sugars are fine; have probably improved since he lost so much weight due to depression and drug use 09/10: Increase wellbutrin XL to 300 mg for residual sx of depression, may help with urges for cocaine (although EVB for this is low). I spent minutes with the patient and/or on the patient floor today, greater than?50% of which was spent counseling/coordinating care. Patient educated on: medication risk/benefits Reason for contiued inpatient stay Substantial Risk for: harm to self and med/psych decompensation
[2021-09-10 18:00] VITALS: BP 119/82; PULSE 89; RESP 16; TEMP 36.6; O2SAT 99
[2021-09-10 19:30] VITALS: BP 143/88; PULSE 76; TEMP 36.2; O2SAT 100
[2021-09-10] MEDS: Tamsulosin HCL 0.4 MG CAPSULE PO (20:10)
[2021-09-10] MEDS: Mineral Oil/Petrolatum,White 106 GM Tube 1 APPL TOPICAL (21:46)
[2021-09-11] MEDS: Aspirin 81 MG TAB.CHEW PO (08:16)
[2021-09-11] MEDS: Atorvastatin Calcium 20 MG TABLET PO (08:16)
[2021-09-11] MEDS: Losartan Potassium 50 MG TABLET 100 MG PO (08:16)
[2021-09-11] MEDS: Thiamine HCL 100 MG TABLET PO (08:16)
[2021-09-11] MEDS: buPROPion HCl XL 300 MG TAB.ER.24H PO (08:16)
[2021-09-11] MEDS: Loratadine 10 MG TABLET PO (08:16)
[2021-09-11] MEDS: VerapamiL HCL SR 240 MG TABLET.ER PO (08:16)
[2021-09-11] MEDS: Folic Acid 1 MG TABLET PO (08:16)
[2021-09-11] MEDS: Multivitamin TABLET 1 TAB PO (08:16)
[2021-09-11] MEDS: metFORMIN HCl 500 MG TABLET PO (08:16)
[2021-09-11 08:18] VITALS: BP 146/87; PULSE 75; RESP 18; TEMP 36.4; O2SAT 97
[2021-09-11] MEDS: Acetaminophen 325 MG TABLET 650 MG PO (11:06)
[2021-09-11] MEDS: SUMAtriptan succinate 25 MG TABLET PO (11:06)
[2021-09-11 17:20] VITALS: BP 130/86; TEMP 36.5
--- NOTE | 2021-09-11 20:11 | HO.PSYCHPN ---
Subjective Subjective Date of Service: 09/11/21 Reason For Visit: depressive d/o, stimulant related d/o, cocaine Subjective Notes: Conditional Voluntary Medical Problems Affecting Mental Status: No Interim History: Patient mood is alright. Pt reports depression but improving. Denies SI/SIB/HI upon inquiry. Denies irritability or assaultive ideation. Says he feels safe.?Eating well. Sleeping better Medication Compliance: Yes Side effects from medications: No Attending Groups: Yes Review of Systems Acute medical concerns: No Medical Review of Systems: unchanged Review of Systems Review of Systems Gen: no fever Resp: no sob, no cough CV: no chest, no LEMUS, no leg edema GI: No n/v, no abd pain Neuro: No confusion Yes all other systems are reviewed and are negative Mental Status Exam Mental Status Exam Narrative: Pt is alert and oriented; behavior is cooperative and calm; mood is described as a little depressed and affect appropriate; Speech is normal volume; normal rate rhythm, and and prosody. No pressured speech; some psychomotor retardation present; thought process is organized and goal directed; Thought content is on treatment for cocaine addiction; no delusional content, paranoid ideas or grandiosity; no SI; no HI; There is no evidence of perceptual disturbance; denies AH.? Patients insight and judgment are impaired but improved. Diagnostics Vital Signs (24Hr): Vital Signs - 24 hr 09/11/21 08:18 09/11/21 17:20 Temperature 97.6 F 97.7 F Pulse Rate 75 Respiratory Rate 18 Blood Pressure 146/87 H 130/86 Pulse Oximetry 97 Oxygen Delivery Method Room Air BMI result Body Mass Index 20.7 Labs Results: 09/08/21 08:22 09/08/21 08:22 Labs: Laboratory Results - last 48 hr 09/10/21 07:57 POC Glucose 100 Medications Medications Current Medications Acetaminophen (Acetaminophen 325 Mg Tablet) 650 mg PO Q6H PRN PRN Reason: Headache/Pain Mild Scale (1-3) Last Admin: 09/11/21 11:06 Dose: 650 mg Al Hydroxide/Mg Hydroxide (Magnesium Hydrox/Alum Hydrox 30 Ml Oral.Susp) 30 ml PO Q6H PRN PRN Reason: Heartburn/Nausea Aspirin (Aspirin 81 Mg Tab.Chew) 81 mg PO DAILY [facility] Last Admin: 09/11/21 08:16 Dose: 81 mg Atorvastatin Calcium (Atorvastatin Calcium 20 Mg Tablet) 20 mg PO DAILY [facility] Last Admin: 09/11/21 08:16 Dose: 20 mg Bupropion HCl (Bupropion Hcl Xl 300 Mg Tab.Er.24h) 300 mg PO DAILY [facility] Last Admin: 09/11/21 08:16 Dose: 300 mg Folic Acid (Folic Acid 1 Mg Tablet) 1 mg PO DAILY [facility] Last Admin: 09/11/21 08:16 Dose: 1 mg Hydroxyzine HCl (Hydroxyzine Hcl 25 Mg Tablet) 25 mg PO BEDTIME PRN PRN Reason: Anxiety Loratadine (Loratadine 10 Mg Tablet) 10 mg PO DAILY [facility] Last Admin: 09/11/21 08:16 Dose: 10 mg Losartan Potassium (Losartan Potassium 50 Mg Tablet) 100 mg PO DAILY [facility]; Protocol Last Admin: 09/11/21 08:16 Dose: 100 mg Magnesium Hydroxide (Milk Of Magnesia 30 Ml Oral.Susp) 30 ml PO DAILY PRN PRN Reason: Constipation Metformin HCl (Metformin Hcl 500 Mg Tablet) 500 mg PO DAILY [facility] Last Admin: 09/11/21 08:16 Dose: 500 mg Multi-Ingred Cream/Lotion/Oil/Oint (Mineral Oil/Petrolatum,White 106 Gm Tube) 1 appl TOPICAL TID [facility] Last Admin: 09/11/21 14:03 Dose: Not Given Multivitamins/Vitamin C (Multivitamin Tablet) 1 tab PO DAILY [facility] Last Admin: 09/11/21 08:16 Dose: 1 tab Nicotine (Nicotine 21 Mg Patch.Td24) 21 mg TRANSDERMA DAILY [facility] Last Admin: 09/11/21 08:18 Dose: Not Given Nicotine Polacrilex (Nicotine Polacrilex Lozenge 2 Mg Lozenge) 2 mg BUCCAL Q2H PRN PRN Reason: Nicotine Cravings Sumatriptan Succinate (Sumatriptan Succinate 25 Mg Tablet) 25 mg PO DAILY PRN PRN Reason: cluster headache Last Admin: 09/11/21 11:06 Dose: 25 mg Tamsulosin HCl (Tamsulosin Hcl 0.4 Mg Capsule) 0.4 mg PO BEDTIME [facility] Last Admin: 09/10/21 20:10 Dose: 0.4 mg Thiamine HCl (Thiamine Hcl 100 Mg Tablet) 100 mg PO DAILY [facility] Last Admin: 09/11/21 08:16 Dose: 100 mg Trazodone HCl (Trazodone Hcl 50 Mg Tablet) 50 mg PO BEDTIME PRN PRN Reason: Insomnia Last Admin: 09/07/21 21:49 Dose: 50 mg Verapamil HCl (Verapamil Hcl Sr 240 Mg Tablet.Er) 240 mg PO DAILY [facility]; Protocol Last Admin: 09/11/21 08:16 Dose: 240 mg Allergies Allergies Allergy/AdvReac Type Severity Reaction Status Date / Time Penicillins AdvReac Intermediate Hives Verified 09/07/21 18:29 ibuprofen AdvReac Nausea and Verified 09/07/21 18:29 Vomiting Assessment & Plan Assessment & Plan (1) MDD (major depressive disorder), recurrent episode, moderate: Status: Acute Code(s): F33.1 - Major depressive disorder, recurrent, moderate (2) Cocaine use disorder: Status: Acute Code(s): F14.10 - Cocaine abuse, uncomplicated Plan Mason is a 61 y.o. who carries a dx of crack cocaine disorder, MDD recurrent. Male who presented to [facility] on 09/07/21 due to SI. Pt reported that on 09/06/21 he jumped out of a second story apartment window yesterday and overdosed on 25 tabs of gabapentin 300 mg. He relapsed on crack cocaine 2 months ago, but heavily increased about 3 weeks ago, using daily. Pt has not been caring for his DM, says he is insulin dependent (later recounts this and says he has never been on insulin). He does not have any current psych providers or PCP as he has been non-adherent with appointments. Precipitating factors include that pt has limited supports, as many people in his family have including his brother who was his best friend; no one in his family has lived past 60 and his sister was recently diagnosed with cancer.? Patient seems to have chronic poorly treated depression which is clearly worsened by substance abuse. Patient is also dealing with several significant losses in his life. However he is fortunate to have a loving supportive which is 1 of his large is protective factors currently his motivation for pursuing recovery. Patient is currently employed -patient agrees to start Wellbutrin; will discontinue Prozac as patient says not helpful -patient wants substance abuse program 09/09 patient remains depressed but says that his mood is a little better and he denies any SI. He is a little more hopeful having talked to his and wants to keep trying to be hopeful, pursuing sobriety and addressing his depression. Still wants [facility] program, hopefully not in [place] or [place] since he knows many of the drug-seeking community in this area. Although patient's mood is better, it is only just beginning to get better and is at a fragile state; patient is not appropriate for discharge at this time has he is highly vulnerable to relapse and mood decompensation Plan: CV Q 15 minute checks Discontinue Prozac Continue (started on admission) Wellbutrin XL 150 mg daily for depression; will assess if need to increase Continue Aspirin 81 mg PO DAILY [facility] Continue Atorvastatin Calcium 20 mg PO DAILY [facility] added Hydroxyzine HCl25 mg PO BEDTIME PRN Continue Loratadine 10 mg PO DAILY [facility] Continue Losartan [id number] mg PO DAILY [facility]; Protocol Continue Metformin HCl 500 mg PO DAILY [facility] Continue Tamsulosin HCl 0.4 mg PO BEDTIME [facility] added Trazodone HCl 50 mg PO BEDTIME PRN Continue Verapamil HCl (Verapamil Hcl Sr 240 Mg Tablet.Er) DISCONTINUE Insulin Human Lispro: Patient reports that he has never been on insulin and his life; pharmacy prescriptions reviewed and verse writer can not find evidence of insulin having been prescribed. Currently patient's blood sugars are fine; have probably improved since he lost so much weight due to depression and drug use 09/10: Increase wellbutrin XL to 300 mg for residual sx of depression, may help with urges for cocaine (although EVB for this is low). 09/11 Continue with treatment plan I spent ___15___ minutes with the patient and/or on the patient floor today, greater than?50% of which was spent counseling/coordinating care. Reason for contiued inpatient stay Substantial Risk for: harm to self, inability to function and rapid decompensation
[2021-09-11] MEDS: traZODone HCL 50 MG TABLET PO (20:55)
[2021-09-11] MEDS: Tamsulosin HCL 0.4 MG CAPSULE PO (20:55)
[2021-09-11] MEDS: Mineral Oil/Petrolatum,White 106 GM Tube 1 APPL TOPICAL (20:58)
[2021-09-12] MEDS: VerapamiL HCL SR 240 MG TABLET.ER PO (08:27)
[2021-09-12] MEDS: Aspirin 81 MG TAB.CHEW PO (08:27)
[2021-09-12] MEDS: Multivitamin TABLET 1 TAB PO (08:27)
[2021-09-12] MEDS: Thiamine HCL 100 MG TABLET PO (08:27)
[2021-09-12] MEDS: buPROPion HCl XL 300 MG TAB.ER.24H PO (08:28)
[2021-09-12] MEDS: Folic Acid 1 MG TABLET PO (08:28)
[2021-09-12] MEDS: Losartan Potassium 50 MG TABLET 100 MG PO (08:28)
[2021-09-12] MEDS: Loratadine 10 MG TABLET PO (08:28)
[2021-09-12] MEDS: Atorvastatin Calcium 20 MG TABLET PO (08:28)
[2021-09-12] MEDS: metFORMIN HCl 500 MG TABLET PO (08:28)
[2021-09-12 08:44] VITALS: BP 117/78; PULSE 74; RESP 18; TEMP 36.4; O2SAT 97
--- NOTE | 2021-09-12 10:42 | HO.PSYCHPN ---
Subjective Subjective Date of Service: 09/12/21 Reason For Visit: depressive d/o, stimulant related d/o, cocaine Subjective Notes: Conditional Voluntary Interim History: Patient mood is alright. Pt reports depression but improving. Denies SI/SIB/HI upon inquiry. Denies irritability or assaultive ideation. Says he feels safe.?Eating well. Sleeping better Medication Compliance: Yes Side effects from medications: No Review of Systems Medical Review of Systems: unchanged Review of Systems Review of Systems Gen: no fever Resp: no sob, no cough CV: no chest, no LEMUS, no leg edema GI: No n/v, no abd pain Neuro: No confusion Yes all other systems are reviewed and are negative Mental Status Exam Mental Status Exam Narrative: Pt is alert and oriented; behavior is cooperative and calm; mood is described as a little depressed and affect appropriate; Speech is normal volume; normal rate rhythm, and and prosody. No pressured speech; some psychomotor retardation present; thought process is organized and goal directed; Thought content is on treatment for cocaine addiction; no delusional content, paranoid ideas or grandiosity; no SI; no HI; There is no evidence of perceptual disturbance; denies AH.? Patients insight and judgment are impaired but improved. Diagnostics Vital Signs (24Hr): Vital Signs - 24 hr 09/11/21 17:20 09/12/21 08:44 Temperature 97.7 F 97.6 F Pulse Rate 74 Respiratory Rate 18 Blood Pressure 130/86 117/78 Pulse Oximetry 97 Oxygen Delivery Method Room Air BMI result Body Mass Index 20.7 Labs Results: 09/08/21 08:22 09/08/21 08:22 Medications Medications Current Medications Acetaminophen (Acetaminophen 325 Mg Tablet) 650 mg PO Q6H PRN PRN Reason: Headache/Pain Mild Scale (1-3) Last Admin: 09/11/21 11:06 Dose: 650 mg Al Hydroxide/Mg Hydroxide (Magnesium Hydrox/Alum Hydrox 30 Ml Oral.Susp) 30 ml PO Q6H PRN PRN Reason: Heartburn/Nausea Aspirin (Aspirin 81 Mg Tab.Chew) 81 mg PO DAILY [facility] Last Admin: 09/12/21 08:27 Dose: 81 mg Atorvastatin Calcium (Atorvastatin Calcium 20 Mg Tablet) 20 mg PO DAILY [facility] Last Admin: 09/12/21 08:28 Dose: 20 mg Bupropion HCl (Bupropion Hcl Xl 300 Mg Tab.Er.24h) 300 mg PO DAILY [facility] Last Admin: 09/12/21 08:28 Dose: 300 mg Folic Acid (Folic Acid 1 Mg Tablet) 1 mg PO DAILY [facility] Last Admin: 09/12/21 08:28 Dose: 1 mg Hydroxyzine HCl (Hydroxyzine Hcl 25 Mg Tablet) 25 mg PO BEDTIME PRN PRN Reason: Anxiety Loratadine (Loratadine 10 Mg Tablet) 10 mg PO DAILY [facility] Last Admin: 09/12/21 08:28 Dose: 10 mg Losartan Potassium (Losartan Potassium 50 Mg Tablet) 100 mg PO DAILY [facility]; Protocol Last Admin: 09/12/21 08:28 Dose: 100 mg Magnesium Hydroxide (Milk Of Magnesia 30 Ml Oral.Susp) 30 ml PO DAILY PRN PRN Reason: Constipation Metformin HCl (Metformin Hcl 500 Mg Tablet) 500 mg PO DAILY [facility] Last Admin: 09/12/21 08:28 Dose: 500 mg Multi-Ingred Cream/Lotion/Oil/Oint (Mineral Oil/Petrolatum,White 106 Gm Tube) 1 appl TOPICAL TID [facility] Last Admin: 09/12/21 08:29 Dose: Not Given Multivitamins/Vitamin C (Multivitamin Tablet) 1 tab PO DAILY [facility] Last Admin: 09/12/21 08:27 Dose: 1 tab Nicotine (Nicotine 21 Mg Patch.Td24) 21 mg TRANSDERMA DAILY [facility] Last Admin: 09/12/21 08:32 Dose: Not Given Nicotine Polacrilex (Nicotine Polacrilex Lozenge 2 Mg Lozenge) 2 mg BUCCAL Q2H PRN PRN Reason: Nicotine Cravings Sumatriptan Succinate (Sumatriptan Succinate 25 Mg Tablet) 25 mg PO DAILY PRN PRN Reason: cluster headache Last Admin: 09/11/21 11:06 Dose: 25 mg Tamsulosin HCl (Tamsulosin Hcl 0.4 Mg Capsule) 0.4 mg PO BEDTIME [facility] Last Admin: 09/11/21 20:55 Dose: 0.4 mg Thiamine HCl (Thiamine Hcl 100 Mg Tablet) 100 mg PO DAILY [facility] Last Admin: 09/12/21 08:27 Dose: 100 mg Trazodone HCl (Trazodone Hcl 50 Mg Tablet) 50 mg PO BEDTIME PRN PRN Reason: Insomnia Last Admin: 09/11/21 20:55 Dose: 50 mg Verapamil HCl (Verapamil Hcl Sr 240 Mg Tablet.Er) 240 mg PO DAILY [facility]; Protocol Last Admin: 09/12/21 08:27 Dose: 240 mg Allergies Allergies Allergy/AdvReac Type Severity Reaction Status Date / Time Penicillins AdvReac Intermediate Hives Verified 09/07/21 18:29 ibuprofen AdvReac Nausea and Verified 09/07/21 18:29 Vomiting Assessment & Plan Assessment & Plan (1) MDD (major depressive disorder), recurrent episode, moderate: Status: Acute Code(s): F33.1 - Major depressive disorder, recurrent, moderate (2) Cocaine use disorder: Status: Acute Code(s): F14.10 - Cocaine abuse, uncomplicated Plan Mason is a 61 y.o. who carries a dx of crack cocaine disorder, MDD recurrent. Male who [place] [facility] due to SI. Pt reported that on 09/06/21 he jumped out of a second story apartment window yesterday and overdosed on 25 tabs of gabapentin 300 mg. He relapsed on crack cocaine 2 months ago, but heavily increased about 3 weeks ago, using daily. Pt has not been caring for his DM, says he is insulin dependent (later recounts this and says he has never been on insulin). He does not have any current psych providers or PCP as he has been non-adherent with appointments. Precipitating factors include that pt has limited supports, as many people in his family have including his brother who was his best friend; no one in his family has lived past 60 and his sister was recently diagnosed with cancer.? Patient seems to have chronic poorly treated depression which is clearly worsened by substance abuse. Patient is also dealing with several significant losses in his life. However he is fortunate to have a loving supportive which is 1 of his large is protective factors currently his motivation for pursuing recovery. Patient is currently employed -patient agrees to start Wellbutrin; will discontinue Prozac as patient says not helpful -patient wants substance abuse program 09/09 patient remains depressed but says that his mood is a little better and he denies any SI. He is a little more hopeful having talked to his and wants to keep trying to be hopeful, pursuing sobriety and addressing his depression. Still wants [facility] program, hopefully not in [place] or [place] since he knows many of the drug-seeking community in this area. Although patient's mood is better, it is only just beginning to get better and is at a fragile state; patient is not appropriate for discharge at this time has he is highly vulnerable to relapse and mood decompensation Plan: CV Q 15 minute checks Discontinue Prozac Continue (started on admission) Wellbutrin XL 150 mg daily for depression; will assess if need to increase Continue Aspirin 81 mg PO DAILY [facility] Continue Atorvastatin Calcium 20 mg PO DAILY [facility] added Hydroxyzine HCl25 mg PO BEDTIME PRN Continue Loratadine 10 mg PO DAILY [facility] Continue Losartan [id number] mg PO DAILY [facility]; Protocol Continue Metformin HCl 500 mg PO DAILY [facility] Continue Tamsulosin HCl 0.4 mg PO BEDTIME [facility] added Trazodone HCl 50 mg PO BEDTIME PRN Continue Verapamil HCl (Verapamil Hcl Sr 240 Mg Tablet.Er) DISCONTINUE Insulin Human Lispro: Patient reports that he has never been on insulin and his life; pharmacy prescriptions reviewed and movie writer can not find evidence of insulin having been prescribed. Currently patient's blood sugars are fine; have probably improved since he lost so much weight due to depression and drug use 09/10: Increase wellbutrin XL to 300 mg for residual sx of depression, may help with urges for cocaine (although EVB for this is low). 09/11 Continue with treatment plan 09/12/continue treatment plan I spent ___15___ minutes with the patient and/or on the patient floor today, greater than?50% of which was spent counseling/coordinating care. Reason for contiued inpatient stay Substantial Risk for: harm to self, inability to function and rapid decompensation
[2021-09-12] MEDS: SUMAtriptan succinate 25 MG TABLET PO ×2 (15:32→22:09)
[2021-09-12 16:50] VITALS: BP 122/74; PULSE 80; TEMP 36.4
[2021-09-12] MEDS: Milk of Magnesia 30 ML ORAL.SUSP PO (19:51)
[2021-09-12] MEDS: Acetaminophen 325 MG TABLET 650 MG PO (21:44)
[2021-09-12] MEDS: traZODone HCL 50 MG TABLET PO (21:45)
[2021-09-12] MEDS: Tamsulosin HCL 0.4 MG CAPSULE PO (21:45)
[2021-09-12] MEDS: Mineral Oil/Petrolatum,White 106 GM Tube 1 APPL TOPICAL (21:46)
[2021-09-13 06:00] VITALS: BP 117/80; PULSE 89; TEMP 36.6; O2SAT 100
[2021-09-13 08:10] LABS: Glucose, Whole Blood 97 mg/dL (60-115)
[2021-09-13] MEDS: Aspirin 81 MG TAB.CHEW PO (08:44)
[2021-09-13] MEDS: VerapamiL HCL SR 240 MG TABLET.ER PO (08:44)
[2021-09-13] MEDS: Thiamine HCL 100 MG TABLET PO (08:44)
[2021-09-13] MEDS: Loratadine 10 MG TABLET PO (08:44)
[2021-09-13] MEDS: Multivitamin TABLET 1 TAB PO (08:46)
[2021-09-13] MEDS: Folic Acid 1 MG TABLET PO (08:46)
[2021-09-13] MEDS: metFORMIN HCl 500 MG TABLET PO (08:46)
[2021-09-13] MEDS: Atorvastatin Calcium 20 MG TABLET PO (08:46)
[2021-09-13] MEDS: buPROPion HCl XL 300 MG TAB.ER.24H PO (08:46)
[2021-09-13] MEDS: Losartan Potassium 50 MG TABLET 100 MG PO (08:46)
[2021-09-13] MEDS: Mineral Oil/Petrolatum,White 106 GM Tube 1 APPL TOPICAL ×3 (08:56→20:46)
--- NOTE | 2021-09-13 10:29 | P.PNPSI_ITS ---
Subjective Subjective Date of Service: 09/13/21 Reason For Visit: depressive d/o, stimulant related d/o, cocaine Interim History: Patient reports that his mood has improved and he continues to be without any SI. Patient remains focused on getting into a treatment program. He reports trouble sleeping which he says is due to his mind going over past traumatic experiences and he agrees to try clonidine at bedtime to see if that can help. Mental Status Exam Mental Status Exam Narrative: Pt is alert and oriented; behavior is cooperative and calm; mood is described as better and affect appropriate; Speech is normal volume; normal rate rhythm, and and prosody. No pressured speech; some psychomotor retardation present; thought process is organized and goal directed; Thought content is on treatment for cocaine addiction; no delusional content, paranoid ideas or grandiosity; no SI; no HI; There is no evidence of perceptual disturbance; denies AH.? Patients insight and judgment are fair. Diagnostics Vital Signs (24Hr): Vital Signs - 24 hr 09/12/21 16:50 09/13/21 06:00 Temperature 97.5 F 97.8 F Pulse Rate 80 89 Blood Pressure 122/74 117/80 Pulse Oximetry 100 Oxygen Delivery Method Room Air BMI result Body Mass Index 20.7 Labs Results: 09/08/21 08:22 09/08/21 08:22 Labs: Laboratory Results - last 48 hr 09/13/21 08:06 POC Glucose 97 Medications Medications Current Medications Acetaminophen (Acetaminophen 325 Mg Tablet) 650 mg PO Q6H PRN PRN Reason: Headache/Pain Mild Scale (1-3) Last Admin: 09/12/21 21:44 Dose: 650 mg Al Hydroxide/Mg Hydroxide (Magnesium Hydrox/Alum Hydrox 30 Ml Oral.Susp) 30 ml PO Q6H PRN PRN Reason: Heartburn/Nausea Aspirin (Aspirin 81 Mg Tab.Chew) 81 mg PO DAILY [facility] Last Admin: 09/13/21 08:44 Dose: 81 mg Atorvastatin Calcium (Atorvastatin Calcium 20 Mg Tablet) 20 mg PO DAILY [facility] Last Admin: 09/13/21 08:46 Dose: 20 mg Bupropion HCl (Bupropion Hcl Xl 300 Mg Tab.Er.24h) 300 mg PO DAILY [facility] Last Admin: 09/13/21 08:46 Dose: 300 mg Folic Acid (Folic Acid 1 Mg Tablet) 1 mg PO DAILY [facility] Last Admin: 09/13/21 08:46 Dose: 1 mg Hydroxyzine HCl (Hydroxyzine Hcl 25 Mg Tablet) 25 mg PO BEDTIME PRN PRN Reason: Anxiety Loratadine (Loratadine 10 Mg Tablet) 10 mg PO DAILY [facility] Last Admin: 09/13/21 08:44 Dose: 10 mg Losartan Potassium (Losartan Potassium 50 Mg Tablet) 100 mg PO DAILY [facility]; Pr otocol Last Admin: 09/13/21 08:46 Dose: 100 mg Magnesium Hydroxide (Milk Of Magnesia 30 Ml Oral.Susp) 30 ml PO DAILY PRN PRN Reason: Constipation Last Admin: 09/12/21 19:51 Dose: 30 ml Metformin HCl (Metformin Hcl 500 Mg Tablet) 500 mg PO DAILY [facility] Last Admin: 09/13/21 08:46 Dose: 500 mg Multi-Ingred Cream/Lotion/Oil/Oint (Mineral Oil/Petrolatum,White 106 Gm Tube) 1 appl TOPICAL TID [facility] Last Admin: 09/13/21 08:56 Dose: 1 appl Multivitamins/Vitamin C (Multivitamin Tablet) 1 tab PO DAILY [facility] Last Admin: 09/13/21 08:46 Dose: 1 tab Nicotine (Nicotine 21 Mg Patch.Td24) 21 mg TRANSDERMA DAILY [facility] Last Admin: 09/13/21 08:47 Dose: Not Given Nicotine Polacrilex (Nicotine Polacrilex Lozenge 2 Mg Lozenge) 2 mg BUCCAL Q2H PRN PRN Reason: Nicotine Cravings Sumatriptan Succinate (Sumatriptan Succinate 25 Mg Tablet) 25 mg PO DAILY PRN PRN Reason: cluster headache Last Admin: 09/12/21 22:09 Dose: 25 mg Tamsulosin HCl (Tamsulosin Hcl 0.4 Mg Capsule) 0.4 mg PO BEDTIME [facility] Last Admin: 09/12/21 21:45 Dose: 0.4 mg Thiamine HCl (Thiamine Hcl 100 Mg Tablet) 100 mg PO DAILY [facility] Last Admin: 09/13/21 08:44 Dose: 100 mg Trazodone HCl (Trazodone Hcl 50 Mg Tablet) 50 mg PO BEDTIME PRN PRN Reason: Insomnia Last Admin: 09/12/21 21:45 Dose: 50 mg Verapamil HCl (Verapamil Hcl Sr 240 Mg Tablet.Er) 240 mg PO DAILY [facility]; Protocol Last Admin: 09/13/21 08:44 Dose: 240 mg Allergies Allergies Allergy/AdvReac Type Severity Reaction Status Date / Time Penicillins AdvReac Intermediate Hives Verified 09/07/21 18:29 ibuprofen AdvReac Nausea and Verified 09/07/21 18:29 Vomiting Assessment & Plan Assessment & Plan (1) MDD (major depressive disorder), recurrent episode, moderate: Status: Acute Code(s): F33.1 - Major depressive disorder, recurrent, moderate (2) Cocaine use disorder: Status: Acute Code(s): F14.10 - Cocaine abuse, uncomplicated Plan Mason is a 61 y.o. who carries a dx of crack cocaine disorder, MDD recurrent. [place] who [place] [facility] due to SI. Pt reported that on 09/06/21 he jumped out of a second story apartment window yesterday and overdosed on 25 tabs of gabapentin 300 mg. He relapsed on crack cocaine 2 months ago, but heavily increased about 3 weeks ago, using daily. Pt has not been caring for his DM, says he is insulin dependent (later recounts this and says he has never been on insulin). He does not have any current psych providers or PCP as he has been non-adherent with appointments. Precipitating factors include that pt has limited supports, as many people in his family have including his brother who was his best friend; no one in his family has lived past 60 and his sister was recently diagnosed with cancer.? Patient seems to have chronic poorly treated depression which is clearly worsened by substance abuse. Patient is also dealing with several significant losses in his life. However he is fortunate to have a loving supportive which is 1 of his large is protective factors currently his motivation for pursuing recovery. Patient is currently employed -patient agrees to start Wellbutrin; will discontinue Prozac as patient says not helpful -patient wants substance abuse program 09/09 patient remains depressed but says that his mood is a little better and he denies any SI. He is a little more hopeful having talked to his and wants to keep trying to be hopeful, pursuing sobriety and addressing his depression. Still wants [facility] program, hopefully not in [place] or [place] since he knows many of the drug-seeking community in this area. Although patient's mood is better, it is only just beginning to get better and is at a fragile state; patient is not appropriate for discharge at this time has he is highly vulnerable to relapse and mood decompensation 09/10: Increase wellbutrin XL to 300 mg for residual sx of depression, may help with urges for cocaine (although EVB for this is low). 09/13 mood remains improved; no SI. Sleep disturbance due to going over memories of bad things. Agrees to try clonidine Treatment team working to help patient get into a substance abuse program/[facility] upon discharge. Patient is at high risk for relapse otherwise. Plan: CV Q 15 minute checks START Clonidine 0.1mg qhs for sleep disturbance; BP WNL Discontinue Prozac Increased to (started on admission) Wellbutrin XL 300 mg daily for depression; will assess if need to increase Continue Aspirin 81 mg PO DAILY [facility] Continue Atorvastatin Calcium 20 mg PO DAILY [facility] added Hydroxyzine HCl25 mg PO BEDTIME PRN Continue Loratadine 10 mg PO DAILY [facility] Continue Losartan [id number] mg PO DAILY [facility]; Protocol Continue Metformin HCl 500 mg PO DAILY [facility] Continue Tamsulosin HCl 0.4 mg PO BEDTIME [facility] added Trazodone HCl 50 mg PO BEDTIME PRN Continue Verapamil HCl (Verapamil Hcl Sr 240 Mg Tablet.Er) DISCONTINUE Insulin Human Lispro: Patient reports that he has never been on insulin and his life; pharmacy prescriptions reviewed and story writer can not find evidence of insulin having been prescribed. Currently patient's blood sugars are fine; have probably improved since he lost so much weight due to depression and drug use I spent minutes with the patient and/or on the patient floor today, greater than?50% of which was spent counseling/coordinating care. Patient educated on: diagnosis and medication risk/benefits Informed Consent: understands Reason for contiued inpatient stay Substantial Risk for: stable for discharge
[2021-09-13] MEDS: Magnesium Citrate 300 ML SOLUTION PO (15:07)
[2021-09-13 20:25] VITALS: BP 123/71; PULSE 76; TEMP 36.7
[2021-09-13] MEDS: cloNIDine HCL 0.1 MG TABLET PO (20:43)
[2021-09-13] MEDS: Tamsulosin HCL 0.4 MG CAPSULE PO (20:44)
[2021-09-13] MEDS: traZODone HCL 50 MG TABLET PO (20:44)
[2021-09-14 08:19] VITALS: BP 109/77; PULSE 69; TEMP 36.3; O2SAT 99
[2021-09-14] MEDS: Folic Acid 1 MG TABLET PO (09:00)
[2021-09-14] MEDS: metFORMIN HCl 500 MG TABLET PO (09:00)
[2021-09-14] MEDS: Losartan Potassium 50 MG TABLET 100 MG PO (09:00)
[2021-09-14] MEDS: Thiamine HCL 100 MG TABLET PO (09:00)
[2021-09-14] MEDS: Loratadine 10 MG TABLET PO (09:01)
[2021-09-14] MEDS: VerapamiL HCL SR 240 MG TABLET.ER PO (09:01)
[2021-09-14] MEDS: Multivitamin TABLET 1 TAB PO (09:01)
[2021-09-14] MEDS: Aspirin 81 MG TAB.CHEW PO (09:01)
[2021-09-14] MEDS: buPROPion HCl XL 300 MG TAB.ER.24H PO (09:01)
[2021-09-14] MEDS: Atorvastatin Calcium 20 MG TABLET PO (09:01)
[2021-09-14] MEDS: Mineral Oil/Petrolatum,White 106 GM Tube 1 APPL TOPICAL (09:06)
--- NOTE | 2021-09-14 09:51 | P.DS_ITS ---
DS: Providers Provider Date of Service: 09/14/21 Date of admission: 09/07/21 18:01 Date of discharge: 09/14/21 Primary care physician: Unknown Physician Attending physician on admission: Gagan Duran Consults: 09/07/21 18:39 Consult to Hospitalist Routine Consulting Provider: Hospitalist Reason For Exam: [facility] USE ADM PHY Attending physician on discharge: Gagan Duran DS: Diagnosis Discharge Diagnosis (1) MDD (major depressive disorder), recurrent episode, moderate: Status: Acute (2) Cocaine use disorder: Status: Acute Mental Status Exam Mental Status Exam Narrative: Pt is alert and oriented; behavior is cooperative and calm; mood is described as good and affect appropriate; Speech is normal volume; normal rate rhythm, and and prosody. No pressured speech; some psychomotor retardation present; thought process is organized and goal directed; Thought content is on treatment for cocaine addiction; no delusional content, paranoid ideas or grandiosity; no SI; no HI; There is no evidence of perceptual disturbance; denies AH.? Patients insight and judgment are fair. Data Data Completed and Pending Completed studies during hospitalization [Text1]: 09/08/21 09/08/21 09/08/21 08:22 08:22 08:22 WBC 4.0 L RBC 4.55 L Hgb 11.9 L Hct 37.0 L MCV 81.3 MCH 26.2 L MCHC 32.2 RDW 14.4 Plt Count 247 MPV 10.1 Immature Gran % (Auto) 0.3 Neut % (Auto) 57.9 Lymph % (Auto) 30.4 [place] % (Auto) 8.1 Eos % (Auto) 2.8 Baso % (Auto) 0.5 Lymph # (Auto) 1.2 [place] # (Auto) 0.3 Eos # (Auto) 0.1 Baso # (Auto) 0.0 Abs Immat Gran (auto) 0.01 Absolute Neuts (auto) 2.3 Absolute Nucleated RBC 0.000 Nucleated RBC % (auto) 0.0 Sodium 139 Potassium 4.6 Chloride 105 Carbon Dioxide 27 Anion Gap 12 BUN 16 Creatinine 0.94 Estim Creat Clear Calc 72.3 Estimated GFR > 60 POC Glucose Fasting Glucose 109 H Estimat Average Glucose 117 Hemoglobin A1c % 5.7 Calcium 9.0 Total Bilirubin 0.3 AST 16 ALT 14 Alkaline Phosphatase 51 Total Protein 6.6 Albumin 4.1 Triglycerides 59 Cholesterol 135 LDL Cholesterol, Calc 78 HDL Cholesterol 46 09/08/21 09/08/21 09/08/21 11:57 16:48 19:31 WBC RBC Hgb Hct MCV MCH MCHC RDW Plt Count MPV Immature Gran % (Auto) Neut % (Auto) Lymph % (Auto) [place] % (Auto) Eos % (Auto) Baso % (Auto) Lymph # (Auto) [place] # (Auto) Eos # (Auto) Baso # (Auto) Abs Immat Gran (auto) Absolute Neuts (auto) Absolute Nucleated RBC Nucleated RBC % (auto) Sodium Potassium Chloride Carbon Dioxide Anion Gap BUN Creatinine Estim Creat Clear Calc Estimated GFR POC Glucose 102 75 98 Fasting Glucose Estimat Average Glucose Hemoglobin A1c % Calcium Total Bilirubin AST ALT Alkaline Phosphatase Total Protein Albumin Triglycerides Cholesterol LDL Cholesterol, Calc HDL Cholesterol 09/09/21 09/09/21 09/09/21 06:23 11:23 15:49 WBC RBC Hgb Hct MCV MCH MCHC RDW Plt Count MPV Immature Gran % (Auto) Neut % (Auto) Lymph % (Auto) [place] % (Auto) Eos % (Auto) Baso % (Auto) Lymph # (Auto) [place] # (Auto) Eos # (Auto) Baso # (Auto) Abs Immat Gran (auto) Absolute Neuts (auto) Absolute Nucleated RBC Nucleated RBC % (auto) Sodium Potassium Chloride Carbon Dioxide Anion Gap BUN Creatinine Estim Creat Clear Calc Estimated GFR POC Glucose 100 90 90 Fasting Glucose Estimat Average Glucose Hemoglobin A1c % Calcium Total Bilirubin AST ALT Alkaline Phosphatase Total Protein Albumin Triglycerides Cholesterol LDL Cholesterol, Calc HDL Cholesterol 09/10/21 09/13/21 07:57 08:06 WBC RBC Hgb Hct MCV MCH MCHC RDW Plt Count MPV Immature Gran % (Auto) Neut % (Auto) Lymph % (Auto) [place] % (Auto) Eos % (Auto) Baso % (Auto) Lymph # (Auto) [place] # (Auto) Eos # (Auto) Baso # (Auto) Abs Immat Gran (auto) Absolute Neuts (auto) Absolute Nucleated RBC Nucleated RBC % (auto) Sodium Potassium Chloride Carbon Dioxide Anion Gap BUN Creatinine Estim Creat Clear Calc Estimated GFR POC Glucose 100 97 Fasting Glucose Estimat Average Glucose Hemoglobin A1c % Calcium Total Bilirubin AST ALT Alkaline Phosphatase Total Protein Albumin Triglycerides Cholesterol LDL Cholesterol, Calc HDL Cholesterol DS: Summary Hospital Course Hospital Course: Mason is a 61 y.o. who carries a dx of crack cocaine disorder, MDD recurrent. Male who presented to [facility] ED on 09/07/21 due to SI. Pt reported that on 09/06/21 he jumped out of a second story apartment window yesterday and overdosed on 25 tabs of gabapentin 300 mg. He relapsed on crack cocaine 2 months ago, but heavily increased about 3 weeks ago, using daily. Pt has not been caring for his DM, says he is insulin dependent (later recounts this and says he? has never been on insulin). He does not have any current psych providers or PCP as he has been non-adherent with appointments. Precipitating factors include that pt has limited supports, as many people in his family have including his brother who was his best friend; no one in his family has lived past 60 and his sister was recently diagnosed with cancer.? Patient seems to have chronic poorly treated depression which is clearly worsened by substance abuse.? Patient is also dealing with several significant losses in his life.? However he is fortunate to have a loving supportive which is 1 of his large is protective factors currently his motivation for pursuing recovery.? Patient is currently employed -patient agrees to start Wellbutrin; will discontinue Prozac as patient says not helpful -patient wants substance abuse program 09/09 patient remains depressed but says that his mood is a little better and he denies any SI.? He is a little more hopeful having talked to his and wants to keep trying to be hopeful, pursuing sobriety and addressing his depression.? Still wants CSS program, hopefully not in [place] or [place] since he knows many of the drug-seeking community in this area.? Although patient's mood is better, it is only just beginning to get better and is at a fragile state; patient is not appropriate for discharge at this time has he is highly vuln erable to relapse and mood decompensation 09/10: Increase wellbutrin XL to 300 mg for residual sx of depression, may help with urges for cocaine (although EVB for this is low). 09/13 mood remains improved; no SI.? Sleep disturbance due to going over memories of bad things.? Agreed to try clonidine Treatment team working to help patient get into a substance abuse program/CSS upon discharge.? Patient is at high risk for relapse otherwise. Met with patient on day of discharge, who reports that his mood is much better and denies any SI. He feels that Wellbutrin, started on admission is working and wants to continue. He feels Clonidine and trazodone also started on admission helped for sleep a little bit and wants to continue both. He is looking forward to going to substance abuse program and is optimistic about pursuing sobriety and about continuing with treatment. Patient is not in imminent risk for harm to self or others. He is discharging to a structured, supportive environment to continue with treatment. Patient is appropriate for discharge. Time spent discussing smoking cessation with patient: 3 to 10 minutes Status at Discharge Functional status at discharge: independent ambulation Overall status at discharge: patient is back to baseline Time Spent with Patient Time attestation: Total time spent providing and/or coordinating discharge services: Time spent: Less than 30 minutes Discharge Plan Discharge Patient Disposition: Home, Self-Care Discharge Diagnosis: MDD, recurrent, moderate in full remission Referrals: [facility] Placement: [facility] [Other] - 09/14/21 1:00 pm (This is a residential/inpatient placement for 10-20 days. [facility] staff will assist in further referrals from here. ) Daphne Cisneros MD [Physician] - 1 Week (PCP notified to schedule appointment. PCP states the facility pt is going to from [place] must schedule due to the time limits.) Discharge Medications: New loratadine 10 mg Tablet 10 mg PO DAILY 30 Days Qty: 30 1RF nicotine 21 mg/24 hr Patch 24 Hour 21 mg transdermal DAILY PRN (Reason: nicotine cravings) 28 Days Qty: 28 1RF nicotine (polacrilex) 2 mg Lozenge 2 mg buccal Q2H PRN (Reason: Nicotine Cravings) 30 Days Qty: 81 1RF tamsulosin 0.4 mg Capsule 0.4 mg PO BEDTIME 30 Days Qty: 30 1RF atorvastatin 20 mg Tablet 20 mg PO DAILY 30 Days Qty: 30 1RF clonidine HCl 0.1 mg Tablet 0.1 mg PO BEDTIME 30 Days Qty: 30 1RF Protocol: Hold for SBP< HOLD for SBP < : 90 losartan 50 mg Tablet 100 mg PO DAILY 30 Days Qty: 60 1RF Protocol: Hold for SBP< HOLD for SBP < : 90 verapamil 240 mg Tablet Extended Release 240 mg PO DAILY 30 Days Qty: 30 1RF Protocol: Hold for SBP/HR < HOLD for SBP < : 90 HOLD for HR < : 60 acetaminophen 325 mg Tablet 650 mg PO Q6H PRN (Reason: Headache/Pain Mild Scale (1-3)) Qty: 0 0RF aspirin 81 mg Tablet,Chewable 81 mg PO DAILY 30 Days Qty: 30 1RF bupropion HCl 300 mg Tablet Extended Release 24 Hr 300 mg PO DAILY 30 Days Qty: 30 1RF sumatriptan succinate 25 mg Tablet 25 mg PO DAILY PRN (Reason: cluster headache) 30 Days Qty: 8 1RF trazodone 50 mg Tablet 50 mg PO BEDTIME PRN (Reason: Insomnia) 30 Days Qty: 60 1RF Rx Instructions: take 1 to 2 tabs nightly as needed for insomnia metformin 500 mg Tablet 500 mg PO DAILY 30 Days Qty: 30 1RF Dermacerin Cream 1 appl topical TID PRN (Reason: dry skin) 30 Days Qty: 454 1RF folic acid 1 mg Tablet 1 mg PO DAILY 30 Days Qty: 30 0RF multivitamin [Daily-Chloe] Tablet 1 tab PO DAILY 30 Days Qty: 30 1RF thiamine mononitrate (vit B1) 100 mg Tablet 100 mg PO DAILY 30 Days Qty: 30 0RF Discharge Orders: Discharge Order (Routine); Ordered 09/14/21 Ordered By: Gagan Duran Diet: diabetic diet and regular diet Activity on Discharge: As tolerated Stand Alone Forms: Patient Portal Discharge page, Community Support Care Plan Goals: Maintain mood and safe behaviors Take medications as prescribed Continue to pursue sobriety Practice coping skills Continue with outpatient providers and reach out to them as needed Health Concerns: Mood stability and behaviors Sobriety Diabetes Hypertension BPH Plan of Treatment: Follow up with your PCP, psychiatric provider and other outpatient providers regarding above concerns Take medications as prescribed Assessment: Risk assessment at time of discharge:? Patient was interviewed prior to discharge and found to be fully oriented and without any SI or HI. Patient has insight and demonstrates good judgment in terms of wanting to pursue treatment. Patient is not in imminent risk of harm to self or others and has a safety plan that includes presenting to the closest ER or calling 911 if feeling unsafe.? Patient has been observed closely by nursing and unit staff throughout admission; patient has not engaged in any behaviors that suggest dangerousness to self or others and has demonstrated appropriate behaviors and impulse control
[2021-09-14] MEDS: Naloxone HCl Nasal TAKE HOME 4 MG SPRAY NOSTRILALT (12:27)
== END 2021-09-14 13:00 | disposition home or self-care (01) | DRG 751 ==
PROVIDERS: Admitting Provider Psychiatry & Neurology Psychiatry; Visit Provider Psychiatry & Neurology Psychiatry
DX: F33.1 Major depressive disorder, recurrent, moderate (principal); E11.9 Type 2 diabetes mellitus without complications; R45.851 Suicidal ideations; E78.5 Hyperlipidemia, unspecified; I10 Essential (primary) hypertension; F17.210 Nicotine dependence, cigarettes, uncomplicated; J45.909 Unspecified asthma, uncomplicated; G44.009 Cluster headache syndrome, unspecified, not intractable; F14.10 Cocaine abuse, uncomplicated; Z91.19 Patient's noncompliance with other medical treatment and regimen; Z71.6 Tobacco abuse counseling; Z88.0 Allergy status to penicillin; Z88.6 Allergy status to analgesic agent; Z79.82 Long term (current) use of aspirin; Z79.84 Long term (current) use of oral hypoglycemic drugs; Z79.899 Other long term (current) drug therapy
CPT/HCPCS: 36415; 80053; 80061; 82947; 83036; 85025; 93005